=== PATIENT | female | born 1985 | race Caucasian/White ===

== ENCOUNTER 2020-03-07 14:55 | Emergency (ER) | payer BC, OTHER ==
[~2020-03-07] VITALS: Ht 160 cm; Wt 65.8 kg
[~2020-03-07 14:55] MED LIST: VALE250C2 PO
--- NOTE | 2020-03-07 15:10 | NUR ---
Pt states she is about 6 weeks , started having some cramping (10/11), slight nausea, and spotting since yesterday -- previous was a miscarriage. Denied CP, SOB, dizziness, no other complaints, no distress noted.
[2020-03-07 16:34] LABS: *BILIRUBIN,URIN NEGATIVE (NEGATIVE); *CLARITY,URINE CLEAR (CLEAR); *COLOR,URINE YELLOW (YELLOW); *KETONES,URINE NEGATIVE (NEGATIVE); *UROBILINOGEN,URINE 0.2 E.U./dl (NORMAL); LEUKOCYTE ESTERASE ,URINE NEGATIVE (NEGATIVE); NITRITE, URINE NEGATIVE (NEGATIVE); UGLUCOSE TRACE (NEGATIVE)
[2020-03-07 16:35] LABS: *BLOOD, URINE TRACE INTACT (NEGATIVE)
--- NOTE | 2020-03-07 16:36 | NUR ---
DC AND FOLLOW UP INSTRUCTIONS GIVEN AND EXPLAINED TO PATIENT WHO STATES SHE UNDERSTANDS ALL ISNTRUCTIONS. COPIES OF LABS AND ULTRASOUND GIVEN. PATIENT IS TO FOLLOW UP WITH HER DOCTOR IN 3 DAYS, PATIENT STATES SHE UNDERSTANDS THIS.
[2020-03-07 17:35] LABS: BACTERIA,URINE NONE SEEN /HPF (NONE SEEN); RBC,URINE 0-3 /HPF (0-3); SQUAMOUS EPITHELIAL CELL,UR FEW /HPF (NONE SEEN); WBC,URINE 0-3 /HPF (0-3)
== END 2020-03-07 16:43 | disposition home or self-care (01) ==
LOC: ER 14:55
DX: O20.0 Threatened abortion (principal); Z3A.01 Less than 8 weeks gestation of pregnancy; D44.3 Neoplasm of uncertain behavior of pituitary gland
CPT/HCPCS: 36415; 76856; 86850; 86900; 86901; A4663

== ENCOUNTER 2021-04-29 19:14 | Emergency (ER) | payer OTHER ==
--- NOTE | 2021-04-29 19:30 | NUR ---
[facility] WAS CALLED TO BE TRIAGED BUT WAS NOT PRESENT IN THE WAITING ROOM OR OUTSIDE OF ER.
--- NOTE | 2021-04-29 19:45 | NUR ---
PATIENT WAS CALLED TO BE TRIAGED BUT WAS NOT PRESENT IN THE WAITING ROOM OR OUTSIDE OF ER.
--- NOTE | 2021-04-29 20:00 | NUR ---
PATIENT WAS NOT TRIAGED OR SEEN BY [facility].
== END 2021-04-29 20:00 | disposition left against medical advice (07) ==
LOC: ER 19:15
DX: Z53.21 Procedure and treatment not carried out due to patient leaving prior to being seen by health care provider (principal)

== ENCOUNTER 2023-11-27 20:29 | Emergency (ER) | payer OTHER ==
[~2023-11-27] VITALS: Ht 160 cm; Wt 63.5 kg
[~2023-11-27 20:29] MED LIST changes: +LAMI1TAB PO; +RALT400T PO
[2023-11-27] MEDS ORDERED: PANTOPRAZOLE SODIUM IV 40 MG in IV DEXTROSE 5% 100 ML IV ONE (20:45)
[2023-11-27] MEDS ORDERED: PANTOPRAZOLE SODIUM 40 MG VIAL ONE (20:52)
[2023-11-27] MEDS ORDERED: ONDANSETRON 4 MG/2 ML VIAL ONE (20:52)
[2023-11-27 20:53] LABS: BASOPHILS % (AUTO) 0.6 % (0.0-2.0); EOSINOPHILS # (AUTO) 0.1 K/uL (0.0-0.7); EOSINOPHILS % (AUTO) 1.3 % (0.0-7.0); HEMATOCRIT 38.9 % (31.2-41.9); HEMOGLOBIN 12.9 g/dL (10.9-14.3); LYMPHOCYTES # (AUTO) 1.8 K/uL (0.8-4.8); LYMPHOCYTES % (AUTO) 35.2 % (20.5-51.5); MEAN CORPUSCULAR HEMOGLOBIN 29.3 uug (24.7-32.8); MEAN CORPUSCULAR HGB CONC 33 g/dL (32.3-35.6); MEAN CORPUSCULAR VOLUME 88.4 fL (75.5-95.3); MONOCYTES # (AUTO) 0.4 K/uL (0.1-1.30); MONOCYTES % (AUTO) 7.4 % (0.0-11.0); NEUTROPHILS # (AUTO) 2.8 K/uL (1.8-8.9); NEUTROPHILS % (AUTO) 55.5 % (38.5-71.5); PLATELET COUNT (AUTO) 168 K/uL (179-408); RED CELL DISTRIBUTION WIDTH 13.5 % (12.3-17.7)
[2023-11-27 20:54] LABS: DIFFERENTIAL COMMENT 1
[2023-11-27 21:01] LABS: CALCIUM 8.8 mg/dL (8.5-10.1); CREATININE 0.7 mg/dL (0.6-1.3); POTASSIUM 4.3 mmol/L (3.5-5.1)
[2023-11-27] MEDS: IV NORMAL SALINE 500 ML BAG IV ONE (21:02)
[2023-11-27] MEDS: PANTOPRAZOLE SODIUM 40 MG VIAL IV ONE (21:02)
[2023-11-27] MEDS: ONDANSETRON 4 MG/2 ML VIAL IV ONE (21:03)
[2023-11-27 21:04] LABS: C-REACTIVE PROTEIN 0.07 mg/dL (0.00-0.30)
[2023-11-27 21:07] LABS: BILIRUBIN,TOTAL 0.6 mg/dL (0.2-1.0); MAGNESIUM 2.2 mg/dL (1.8-2.4); TOTAL PROTEIN, SERUM 7.4 g/dL (6.4-8.2)
[2023-11-27] MEDS ORDERED: ONDA4TAB5 PO (21:10)
[2023-11-27] MEDS ORDERED: DICY10CA21 PO (21:10)
[2023-11-27] MEDS ORDERED: PANT40TA2 PO (21:11)
[2023-11-27 21:50] VITALS: BP 108/75; TEMP 207.5; O2SAT 99
== END 2023-11-27 21:50 | disposition home or self-care (01) ==
LOC: ER 20:32
DX: K29.70 Gastritis, unspecified, without bleeding (principal); R10.11 Right upper quadrant pain; Z79.899 Other long term (current) drug therapy
CPT/HCPCS: 36415; 83690; 83735; 85025; 86140; A4606; A4663; J2405; J2470; J7040